=== PATIENT | male | born 1990 | race Caucasian/White ===

== ENCOUNTER 2017-02-23 17:08 | Emergency (ER) | payer MEDICAID, OTHER ==
[2017-02-23 17:19] VITALS: TEMP 98.1
--- NOTE | 2017-02-23 18:18 | C.PDOC ---
History Of Present Illness 26 y/o male presents with laceration to anterior distal tip of left third finger , caused accidentally by kitchen knife. no numbness or tingling. 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 last tdap unknown. Time Seen by Provider: 02/23/17 17:21 Chief Complaint (Nursing): Abnormal Skin Integrity History Per: Patient History/Exam Limitations: no limitations Onset/Duration Of Symptoms: Mins Location Of Injury: Left: Hand (third finger laceration), Anterior: Hand Quality Of Symptoms: Painful Past Medical History Reviewed: Historical Data, Nursing Documentation, Vital Signs Vital Signs: Last Vital Signs Temp 98.1 F 02/23/17 18:23 Pulse 69 02/23/17 18:23 Resp 20 02/23/17 18:23 BP 122/80 02/23/17 18:23 Pulse Ox 100 02/26/17 22:49 - Medical History PMH: No Chronic Diseases Surgical History: No Surg Hx Family History: States: Unknown Family Hx - Social History Hx Tobacco Use: No Hx Alcohol Use: Yes Hx Substance Use: No - Immunization History Hx Tetanus Toxoid Vaccination: No Hx Influenza Vaccination: Yes Hx Pneumococcal Vaccination: No Review Of Systems Constitutional: Negative for: Fever, Chills Skin: Positive for: Other (laceration left 3rd finger distal tip 1 cm ant) Neurological: Negative for: Weakness, Numbness Physical Exam - Physical Exam Appears: Non-toxic, No Acute Distress Skin: Warm, Dry, Other (1 cm laceration distal left third finger) ED Course And Treatment O2 Sat by Pulse Oximetry: 100 Laceration - Laceration Repair finger Wound Length (In cm): 1 Description Of Wound: Linear, Clean Wound Cleansed With: Sterile Saline Anesthesia: Lidocaine 1% Wound Examination: Irrigated With Saline Wound Closure: Suture (#3 sutures of 4-0 ethilon) Suture Technique And Material Used: Running, Interrupted Wound Complexity: Simple Disposition Counseled Patient/Family Regarding: Diagnosis, Need For Followup - Disposition Referrals: [facility] [Outside] Disposition: HOME/ ROUTINE Disposition Time: 18:19 Condition: IMPROVED Additional Instructions: Keep clean and dry. Change bandage daily, wash gently with soap and water. Make appointment in clinic in 10 days for suture removal. Tylenol or Motrin for pain. Return to ER for any worsening symptoms. Instructions: Care For Your Stitches (ED), Laceration (ED) Forms: [employer] [facility] (Swedish), General Discharge Instructions - Clinical Impression Clinical Impression: Laceration of left middle finger
[2017-02-23 18:24] VITALS: BP 122/80; PULSE 69; RESP 20
[2017-02-23 18:26] VITALS: O2SAT 100
== END 2017-02-23 18:30 | disposition home or self-care (01) ==
LOC: C.ER 17:08
DX: S61.213A Laceration without foreign body of left middle finger without damage to nail, initial encounter (principal); W26.0XXA Contact with knife, initial encounter